=== PATIENT | female | born 1980 | race Caucasian/White ===

== ENCOUNTER 2018-01-31 15:00 | Outpatient (CLI) | payer OTHER | END 2018-01-31 15:06 | disposition home or self-care (01) | LOC: SONOGRAMA 15:00 | DX: N94.0 Mittelschmerz (principal); R10.2 Pelvic and perineal pain; N94.89 Other specified conditions associated with female genital organs and menstrual cycle ==

== ENCOUNTER 2018-02-05 05:10 | Day surgery (SDC) | payer OTHER | END 2018-02-05 16:00 | disposition home or self-care (01) | LOC: CIR.AMB 05:10 | DX: N93.8 Other specified abnormal uterine and vaginal bleeding (principal) ==